=== PATIENT | male | born 1980 | race Caucasian/White ===

== ENCOUNTER 2024-02-13 13:44 | Emergency (ER) | payer OTHER, SELFPAY ==
[2024-02-13] MEDS ORDERED: Lidocaine 1% w/Epinephrine 1:200K 30 ML VIAL ONE (14:41)
[2024-02-13] MEDS ORDERED: Boostrix 0.5 ML (Tdap) VIAL (>/=7 yrs of age) ONE (14:41)
== END 2024-02-13 16:25 | disposition home or self-care (01) ==
LOC: CSHERS 13:44
DX: S61.012A Laceration without foreign body of left thumb without damage to nail, initial encounter (principal); W26.8XXA Contact with other sharp object(s), not elsewhere classified, initial encounter; Z23 Encounter for immunization
CPT/HCPCS: 12002; 90471; 90715